=== PATIENT | male | born 1950 | race Caucasian/White ===

== ENCOUNTER 2020-10-25 07:40 | Outpatient (CLI) | payer MEDICARE, MEDICAID ==
[2020-10-25 08:07] LABS: CHOL/HDL RATIO 3.9; LDL/HDL RATIO 2.4 (0.5-3.0)
== END 2020-10-25 23:59 | disposition home or self-care (01) ==
LOC: LAB 07:40
PROVIDERS: ATTEND Internal Medicine Cardiovascular Disease
DX: I10 Essential (primary) hypertension (principal); E78.5 Hyperlipidemia, unspecified
CPT/HCPCS: 36415; 80061; 84450; 84460